=== PATIENT | male | born 1965 | race Caucasian/White ===

== ENCOUNTER 2017-05-19 14:03 | Emergency (ER) | payer OTHER ==
[2017-05-19 14:18] VITALS: BP 124/64; PULSE 83; TEMP 99.1; BMI 44.3
--- NOTE | 2017-05-19 14:27 | PDOC ---
History of Present Illness <Abida Nicole - Last Filed: 05/19/17 15:16> - General History Source: Patient Exam Limitations: No Limitations - History of Present Illness Initial Comments: 05/19/17 14:57 Pt is a 51 yo M with a PMHx of Leukemia, Lymphoma, DM, HTN, HLD, Sarcoidosis who presents to the ED with abrasion to R abdullahi today. Patient was at work and accidentally tripped on the bus sustaining this injury. Patient reports high concern for infection due to his cancer and presents to the ED for further evaluation. Patient notes low grade fever secondary to his cancer diagnosis since December 2015. Patient denies head trauma, other injuries. Upon evaluation, patient requesting tetanus shot. Note: Patient is a [employer] business analyst. Allergies: NKA PCP: None <Elda Donald - Last Filed: 05/19/17 15:31> - General Chief Complaint: Injury Stated Complaint: FALL RIGHT LEG PAIN ON THE JOB Time Seen by Provider: 05/19/17 14:26 Past History - Past Medical History Cancer: Yes (leukemia, lymphomia) - Suicide/Smoking/Psychosocial Hx Smoking History: Never smoked Have you smoked in the past 12 months: No Information on smoking cessation initiated: No Hx Alcohol Use: No Drug/Substance Use Hx: No Substance Use Type: None <Abida Nicole - Last Filed: 05/19/17 15:16> <Elda Donald - Last Filed: 05/19/17 15:31> - Past Medical History Allergies/Adverse Reactions: Allergies Allergy/AdvReac Type Severity Reaction Status Date / Time No Known Allergies Allergy Verified 05/19/17 14:18 Home Medications: Ambulatory Orders Albuterol Sulfate Inhaler - [Ventolin Hfa Inhaler -] 2 inh PO Q4H 05/19/17 Allopurinol 300 mg PO ASDIR 05/19/17 Amlodipine Besylate [Norvasc -] 10 mg PO DAILY 05/19/17 Amlodipine Besylate [Norvasc -] 10 mg PO DAILY 05/19/17 Brimonidine Tartrate [Alphagan 0.15% -] 1 drop OD TID 05/19/17 Candesartan/Hydrochlorothiazid [Candesartan-Hctz 32-12.5 mg Tb] 1 each PO ASDIR 05/19/17 Cephalexin [Keflex] 1,000 mg PO BID #28 capsule 05/19/17 Fenofibrate 150 mg PO ASDIR 05/19/17 Glimepiride [Amaryl -] 4 mg PO ASDIR 05/19/17 Metoprolol Succinate [Toprol Xl] 50 mg PO ASDIR 05/19/17 Rosuvastatin [Crestor -] 20 mg PO ASDIR 05/19/17 Tadalafil [Cialis] 10 mg PO ASDIR 05/19/17 Testosterone [Androgel -] 5 gm TD ASDIR 05/19/17 Review of Systems - Review of Systems Able to Perform ROS?: Yes Comments:: 05/19/17 14:57 GENERAL/CONSTITUTIONAL: No fever or chills. No weakness. HEAD, EYES, EARS, NOSE AND THROAT: No change in vision. No ear pain or discharge. No sore throat. CARDIOVASCULAR: No chest pain or shortness of breath. RESPIRATORY: No cough, wheezing, or hemoptysis. MUSCULOSKELETAL: No joint or muscle swelling or pain. No neck or back pain. SKIN: + R abdullahi abrasion. No rash <Elda Donald - Last Filed: 05/19/17 15:31> *Physical Exam - Vital Signs Last Vital Signs Temp Pulse Resp BP Pulse Ox 99.1 F 83 20 124/64 97 05/19/17 14:15 05/19/17 14:15 05/19/17 14:15 05/19/17 14:15 05/19/17 14:15 <Abida Nicole - Last Filed: 05/19/17 15:16> - Vital Signs Last Vital Signs Temp Pulse Resp BP Pulse Ox 99.1 F 83 20 124/64 97 05/19/17 14:15 05/19/17 14:15 05/19/17 14:15 05/19/17 14:15 05/19/17 14:15 - Physical Exam Comments: 05/19/17 14:57 GENERAL: Awake, alert, and fully oriented, in no acute distress HEAD: No signs of trauma EYES: PERRLA, EOMI, sclera anicteric, conjunctiva clear LUNGS: Breath sounds equal, clear to auscultation bilaterally. No wheezes, and no crackles HEART: Regular rate and rhythm, normal S1 and S2, no murmurs, rubs or gallops SKIN: Warm, Dry, normal turgor, no rashes or lesions noted. +1 cm, linear superficial abrasion on the lower third of R abdullahi. No erythema, ecchymosis, tenderness ,bony deformities. <Elda Donald - Last Filed: 05/19/17 15:31> Medical Decision Making - Medical Decision Making 05/19/17 15:11 51-year-old with multiple medical problems including diabetes, being treated for leukemia and lymphoma, stage IV on meds, who has a small Chin abrasion, no signs of bony injury or indication for imaging. Patient states he always runs a low fever because of his condition. Will give td versus tdap Given his immunosuppression. Prescribed Keflex, patient concerned that he had been on recent antibiotics, explained to patient the need for antibiotics and the risk of infection and that he's diabetic an immunosuppressed, but he could discuss with his doctor today if any further questions. <Abida Nicole - Last Filed: 05/19/17 15:16> *DC/Admit/Observation/Transfer - Discharge Dispostion Admit: No <Abida Nicole - Last Filed: 05/19/17 15:16> <Elda Donald - Last Filed: 05/19/17 15:31> Diagnosis at time of Disposition: Abrasion - Discharge Dispostion Disposition: HOME Condition at time of disposition: Stable - Prescriptions Prescriptions: Cephalexin [Keflex] 1,000 mg PO BID #28 capsule - Patient Instructions Printed Discharge Instructions: Skin Wound Additional Instructions: Clean with soap and water 2-3 times daily, apply bacitracin Have her reevaluated if redness, pus, fever or getting worse Followup with your doctor You were prescribed an antibiotic, Keflex 1000 mg twice a day for 7 days to prevent infection given that your immune system is compromised by your medical condition. If you have any concerns, you should call your doctor to discuss this further today. Or more at risk for an infection because of your condition Return to full duty on Wednesday and you were given a note that also states this - Post Discharge Activity Forms/Work/School Notes: Back to Work
[2017-05-19] MEDS ORDERED: TETANUS AND DIPHTHERIA TOXOID 0.5 ML DISP.SYRIN IM ONE (14:49)
[2017-05-19] MEDS ORDERED: BACITRACIN 15 GM TUBE TOPICAL OINTMENT TP ONE (14:50)
[2017-05-19] MEDS ORDERED: BACITRACIN 15 GM TUBE TOPICAL OINTMENT ONE (14:56)
== END 2017-05-19 15:03 | disposition home or self-care (01) ==
LOC: JERFT 14:03
PROC: 3E0234Z Introduction of Serum, Toxoid and Vaccine into Muscle, Percutaneous Approach (ICD-10-PCS; principal; 2017-05-19)
DX: S80.811A Abrasion, right lower leg, initial encounter (principal); W18.09XA Striking against other object with subsequent fall, initial encounter; Y93.89 Activity, other specified; Y92.521 Bus station as the place of occurrence of the external cause; Y99.0 Civilian activity done for income or pay; C95.90 Leukemia, unspecified not having achieved remission; E11.9 Type 2 diabetes mellitus without complications; I10 Essential (primary) hypertension; E78.5 Hyperlipidemia, unspecified; D86.9 Sarcoidosis, unspecified; C85.90 Non-Hodgkin lymphoma, unspecified, unspecified site
CPT/HCPCS: 99281-25

== ENCOUNTER 2017-06-04 10:37 | Emergency (ER) | payer OTHER ==
[2017-06-04 11:04] VITALS: TEMP 98.3; BMI 45.8
--- NOTE | 2017-06-04 11:27 | PDOC ---
History of Present Illness - General History Source: Patient Exam Limitations: No Limitations - History of Present Illness Initial Comments: 06/04/17 11:54 The patient is a 51 year old male, with a significant past medical history of asthma, diabetes, sarcoids, hypertension, hyperlipidemia, and recent diagnosis of leukemia and lymphoma, who presents to the emergency department with shortness of breath since earlier this morning. The patient reports he was on his way to work when he began to feel short of breath and diaphoretic. Patient reports associated body shakes. He denies any chest pain, palpitations, lightheadedness, or lower extremity edema. Patient reports he was anxious, because he was recently diagnosed with leukemia and lymphoma, and his doctors wanted to start him on on Rituximab once a week. Patient reports added stressors at work, because he might not be able to take 1 day a week off to receive treatment. Patient denies any recent fever, chills, cough, headache, or dizziness. He denies any abdominal pain, nausea, vomiting, diaphoresis, or palpitations. He denies any dysuria, hematuria, frequency, or urgency. He denies any recent travel or sick contacts. Patient reports he has an inhaler at home, but does not really use it. Allergies: NKDA Past Surgical History: Lung Sx Social History: Non smoker. No ETOH or recreational drug use. <Keyana Cunha - Last Filed: 06/04/17 14:28> <Maliha Martinez - Last Filed: 06/04/17 14:38> - General Chief Complaint: Psychiatric Stated Complaint: SOB Time Seen by Provider: 06/04/17 11:25 Past History <Keyana Cunha - Last Filed: 06/04/17 14:28> - Past Medical History Cancer: Yes (leukemia, lymphomia) Diabetes: Yes HTN: Yes Hypercholesterolemia: Yes Other medical history: Sarcoids - Surgical History Lung Surgery: Yes - Suicide/Smoking/Psychosocial Hx Smoking History: Never smoked Have you smoked in the past 12 months: No Information on smoking cessation initiated: No Hx Alcohol Use: No Drug/Substance Use Hx: No Substance Use Type: None <Maliha Martinez - Last Filed: 06/04/17 14:38> - Past Medical History Allergies/Adverse Reactions: Allergies Allergy/AdvReac Type Severity Reaction Status Date / Time No Known Allergies Allergy Verified 06/04/17 11:04 Home Medications: Ambulatory Orders Albuterol Sulfate Inhaler - [Ventolin Hfa Inhaler -] 2 inh PO Q4H 05/19/17 Allopurinol 300 mg PO ASDIR 05/19/17 Amlodipine Besylate [Norvasc -] 10 mg PO DAILY 05/19/17 Brimonidine Tartrate [Alphagan 0.15% -] 1 drop OD TID 05/19/17 Candesartan/Hydrochlorothiazid [Candesartan-Hctz 32-12.5 mg Tb] 1 each PO ASDIR 05/19/17 Fenofibrate 150 mg PO ASDIR 05/19/17 Glimepiride [Amaryl -] 4 mg PO ASDIR 05/19/17 Metoprolol Succinate [Toprol Xl] 50 mg PO ASDIR 05/19/17 Rosuvastatin [Crestor -] 20 mg PO ASDIR 05/19/17 Tadalafil [Cialis] 10 mg PO ASDIR 05/19/17 Testosterone [Androgel -] 5 gm TD ASDIR 05/19/17 Review of Systems - Review of Systems Able to Perform ROS?: Yes Comments:: 06/04/17 11:54 GENERAL/CONSTITUTIONAL: Yes diaphoresis, body shakes. No fever or chills. No weakness. HEAD, EYES, EARS, NOSE AND THROAT: No change in vision. No ear pain or discharge. No sore throat. GASTROINTESTINAL: No nausea, vomiting, diarrhea or constipation. GENITOURINARY: No dysuria, frequency, or change in urination. CARDIOVASCULAR: No chest pain. RESPIRATORY: Yes shortness of breath. No cough, wheezing, or hemoptysis. MUSCULOSKELETAL: No joint or muscle swelling or pain. No neck or back pain. SKIN: No rash NEUROLOGIC: No headache, vertigo, loss of consciousness, or change in strength/ sensation. ENDOCRINE: No increased thirst. No abnormal weight change. HEMATOLOGIC/LYMPHATIC: No anemia, easy bleeding, or history of blood clots. ALLERGIC/IMMUNOLOGIC: No hives or skin allergy. <Keyana Cunha - Last Filed: 06/04/17 14:28> *Physical Exam - Vital Signs Last Vital Signs Temp Pulse Resp BP Pulse Ox 98.3 F 71 22 148/73 100 06/04/17 10:56 06/04/17 10:56 06/04/17 10:56 06/04/17 10:56 06/04/17 10:56 - Physical Exam Comments: 06/04/17 11:54 Constitutional: Morbidly obese. Awake, alert, oriented. No acute distress. Speaking in full sentences. Head: Normocephalic. Atraumatic Eyes: PERRL. EOMI. Conjunctivae are not pale. ENT: Mucous membranes are moist and intact. Posterior pharynx without exudates or erythema. Uvula midline. Neck: Supple. Full ROM. No lymphadenopathy. Cardiovascular: Regular rate. Regular rhythm. S1, S2 regular. Distal pulses are 2+ and symmetric. Pulmonary/Chest: Soft expiratory wheezing. Not tachypneic. No evidence of respiratory distress. No rales or rhonchi. Abdominal: Soft and non-distended. There is no tenderness. No rebound, guarding or rigidity. No organomegaly. No palpable masses. Good bowel sounds. Back: No CVA tenderness. Musculoskeletal: Palpable lymph nodes of known origin under both arms. No edema. No cyanosis. No clubbing. Full range of motion in all extremities. No calf tenderness. Radial/pedal pulses are intact and 2+ bilaterally Skin: Skin is warm and dry. No petechiae. No purpura. Neurological: Alert and oriented to person, place, and time. Cranial nerves II -XII are grossly intact. Normal speech. Strength is grossly symmetric. No sensory deficits. Psychiatric: Good eye contact. Normal interaction, affect and behavior. <Keyana Cunha - Last Filed: 06/04/17 14:28> - Vital Signs Last Vital Signs Temp Pulse Resp BP Pulse Ox 98.3 F 71 22 148/73 100 06/04/17 10:56 06/04/17 10:56 06/04/17 10:56 06/04/17 10:56 06/04/17 10:56 <Maliha Martinez - Last Filed: 06/04/17 14:38> Heart Score/ECG Review - ECG Intrepretation Comment:: 06/04/17 13:08 sinus at 62, nl axis, nl interval, poor r wave progression, t wave inversions III, no acute st/t wave findings <Maliha Martinez - Last Filed: 06/04/17 14:38> ED Treatment Course - LABORATORY CBC & Chemistry Diagram: 06/04/17 12:00 06/04/17 12:00 - RADIOLOGY Radiograph Interpretation: 06/04/17 14:28 EXAM: CXR INTERPRETED BY: Dr. Cordova REVIEWED BY: Dr. Martinez IMPRESSION: No definite infiltrates seen. <Keyana Cunha - Last Filed: 06/04/17 14:28> - LABORATORY CBC & Chemistry Diagram: 06/04/17 12:00 06/04/17 12:00 <Maliha Martinez - Last Filed: 06/04/17 14:38> Medical Decision Making - Medical Decision Making 06/04/17 13:08 a/p: 51yo male with anxiety and sob today -labs -ekg -cxr -suspect anxiety over recently being told he needs to start chemo and is having complications with work agreeing to his chemo schedule. feeling stressed over managing his upcoming future. 06/04/17 14:36 re-eval: pt feeling much better. No cp. No sob. Lungs clear after neb treatment. Discussed lab and imaging results. Pt stable for d/c to home. Pt understands all reasons to return to the ED and need for follow up. ANswered all questions. <Maliha Martinez - Last Filed: 06/04/17 14:38> *DC/Admit/Observation/Transfer - Attestations Scribe Attestion: 06/04/17 11:55 Documentation prepared by Keyana Cunha, acting as medical professionals for Maliha Martinez DO. <Keyana Cunha - Last Filed: 06/04/17 14:28> - Discharge Dispostion Admit: No - Attestations Physician Attestion: 06/04/17 14:38 I, Dr. Maliha Martinez DO, attest that this document has been prepared under my direction and personally reviewed by me in its entirety. I further attest, that it accurately reflects all work, treatment, procedures and medical decision -making performed by me. <Maliha Martinez - Last Filed: 06/04/17 14:38> Diagnosis at time of Disposition: Acute reaction to stress, Wheezing - Discharge Dispostion Disposition: HOME Condition at time of disposition: Stable - Referrals Referrals: STAFF,NOT ON [Primary Care Provider] - Jerrell Ann MD [Staff Physician] - - Patient Instructions Printed Discharge Instructions: Stress: Is Simplicity the Answer?, DI for Asthma -- Adult Additional Instructions: Please follow up with your PMD. Please return to the ED with any further concerns. - Post Discharge Activity Forms/Work/School Notes: Back to Work
[2017-06-04] MEDS ORDERED: ALBUTEROL SO4 2.5/IPRATROPIUM 0.5 INH SOL 3 ML VIAL.NEB. NEB ONE ×2 (11:36→12:10)
[2017-06-04] MEDS ORDERED: SODIUM CHLORIDE 0.9% 1000 ML INFUS.BAG IV ONE (11:37)
[2017-06-04 12:11] LABS: BASOPHIL 0.2 % (0-2.0); EOSINOPHIL 0.8 % (0-4.5); MCH 29.2 pg (25.7-33.7); MEAN CELL VOLUME 85.9 fl (80-96); MEAN PLT VOLUME 8.6 fl (7.5-11.1); NEUTROPHILS 51.9 % (42.8-82.8); PLATELET COUNT 222 K/MM3 (134-434); RDW 15.2 % (11.9-15.9); WHITE BLOOD COUNT 8.4 K/mm3 (4.0-10.0)
[2017-06-04 12:30] LABS: ALBUMIN 3.9 g/dl (3.4-5.0); ANION GAP 4 (8-16); CALCIUM 8.8 mg/dL (8.5-10.1); CO2 30 mmol/L (21-32); CREATININE 1.1 mg/dL (0.7-1.3); GLUCOSE,RANDOM 197 mg/dL (74-106); SGOT/AST 13 U/L (15-37); SGPT/ALT 22 U/L (12-78)
[2017-06-04 12:31] LABS: ALK PHOS 51 U/L (45-117); BILIRUBIN,TOTAL 0.4 mg/dL (0.2-1.0); TOT PROT 7.3 g/dl (6.4-8.2)
[2017-06-04 15:04] VITALS: BP 130/86; PULSE 62
--- NOTE | 2017-06-05 09:37 | EKG ---
Test Reason : Blood Pressure : / mmHG Vent. Rate : 062 BPM Atrial Rate : 062 BPM P-R Int : 152 ms QRS Dur : 094 ms QT Int : 406 ms P-R-T Axes : 034 -18 012 degrees QTc Int : 412 ms NORMAL SINUS RHYTHM CANNOT RULE OUT ANTERIOR INFARCT , AGE UNDETERMINED ABNORMAL ECG NO PREVIOUS ECGS AVAILABLE Confirmed by KANA CAVANAUGH MD ([id number]) on 06/05/2017 9:37:23 AM Referred By: Confirmed By:KANA CAVANAUGH MD
== END 2017-06-04 14:45 | disposition home or self-care (01) ==
LOC: JER 10:37
PROC: 3E0F7GC Introduction of Other Therapeutic Substance into Respiratory Tract, Via Natural or Artificial Opening (ICD-10-PCS; principal; 2017-06-04)
DX: C95.90 Leukemia, unspecified not having achieved remission (principal); C85.90 Non-Hodgkin lymphoma, unspecified, unspecified site; F06.4 Anxiety disorder due to known physiological condition; I10 Essential (primary) hypertension; E11.9 Type 2 diabetes mellitus without complications; Z79.84 Long term (current) use of oral hypoglycemic drugs; E78.00 Pure hypercholesterolemia, unspecified
CPT/HCPCS: 36415; 71020-TC; 80053; 85025; 93005; 93010; 99283-25